=== PATIENT | male | born 1970 ===

== ENCOUNTER 2024-12-02 16:19 | Inpatient (IN) | payer MEDICAID ==
[2024-12-02] VITALS (8 sets, daily range): BP systolic 84–107; BP diastolic 50–70; PULSE 75–84; RESP 14–22; TEMP 98.5; O2SAT 93–100
[~2024-12-02] VITALS: Ht 167.6 cm; Wt 88.6 kg
[2024-12-02 16:52] LABS: BASOPHILS % (AUTO) 0.4 % (0-1); EOSINOPHILS % (AUTO) 0.3 % (0-6); HEMATOCRIT 44.4 % (42.0-52.0); HEMOGLOBIN 14.8 g/dl (14.0-17.9); LYMPHOCYTES # (AUTO) 1.1 X10'3 (1.1-4.8); LYMPHOCYTES % (AUTO) 10.1 % (21-51); MEAN CORPUSCULAR HEMOGLOBIN 33.1 PG (27.0-31.0); MEAN CORPUSCULAR HGB CONC 33.3 g/dL (33.0-36.5); MEAN CORPUSCULAR VOLUME 99.4 FL (78-98); MEAN PLATELET VOLUME 8.7 FL (7.4-10.4); MONOCYTES # (AUTO) 0.5 X10'3 (0-0.9); MONOCYTES % (AUTO) 4.2 % (2-12); NEUTROPHILS # (AUTO) 9.3 X10'3 (1.8-7.7); PLATELET COUNT 342 X10'3 (140-440); RED BLOOD COUNT 4.46 X10'6 (4.70-6.10); RED CELL DISTRIBUTION WIDTH 13.9 % (11.5-14.5)
[2024-12-02 17:06] LABS: ALANINE AMINOTRANSFERASE 34 U/L (12-78); ALBUMIN 3.6 G/DL (3.4-5.0); ALBUMIN/GLOBULIN RATIO 0.9 (1.1-1.5); ALKALINE PHOSPHATASE 92 IU/L (46-116); AMYLASE 38 U/L (25-115); ANION GAP 8 (8-16); BLOOD UREA NITROGEN 13 MG/DL (7-18); BUN/CREATININE RATIO 13.1 (10.0-20.0); CALCIUM 8.8 MG/DL (8.5-10.1); CHLORIDE 105 MMOL/L (99-107); CREATININE 0.99 MG/DL (0.60-1.10); GLUCOSE 136 MG/DL (70-104); LIPASE 24 U/L (16-77); SODIUM 139 MMOL/L (135-145); TOTAL CARBON DIOXIDE 26.1 MMOL/L (24-32); TOTAL PROTEIN 7.6 G/DL (6.4-8.2); eCRCL 77 ML/MIN; eGFR 79 ML/MIN
[2024-12-02 17:08] LABS: ASPARTATE AMINO TRANSFERASE 29 U/L (10-37); BILIRUBIN,TOTAL 1.2 MG/DL (0.1-1.0); POTASSIUM 4.2 MMOL/L (3.5-5.1)
[2024-12-02 18:14] LABS: BILIRUBIN,URINE NEGATIVE (Neg); CLARITY,URINE CLEAR (Clear); COLOR,URINE YELLOW (Yellow); GLUCOSE, URINE NEGATIVE (Neg); KETONES,URINE 40 mg/dl (Neg); LEUKOCYTE ESTERASE ,URINE NEGATIVE (Neg); NITRITES, URINE NEGATIVE (Neg); OCCULT BLOOD,URINE NEGATIVE (Neg); PROTEIN,URINE 30 mg/dl (Neg)
[2024-12-02 18:18] LABS: UA COLLECTION TYPE VOIDED
[2024-12-02 18:20] LABS: BACTERIA,URINE FEW /HPF (Neg); MUCUS STRANDS NONE SEEN /LPF (Neg); RBC,URINE 0-2 /HPF (0-2); SPERM MODERATE /HPF (NEGATIVE); WBC,URINE 0-4 /HPF (0-4)
[2024-12-02 18:21] LABS: SQUAMOUS EPITHELIAL CELL,UR FEW /LPF (FEW)
[2024-12-02] MEDS: normal saline 1000ml 1,000 ML IV ONE (18:58)
[2024-12-02] MEDS: ondansetron/PF 4mg/2ml inj IV STA (20:13)
[2024-12-02] MEDS: morphine 4 MG/ML inj SYRINge IV STA (20:14)
[2024-12-02] MEDS: piperacillin/tazo 4.5gm/100ml 100 ML IV STA (20:33)
[2024-12-02] MEDS: normal saline 1000ml 1,000 ML IV STA (20:33)
[2024-12-02] MEDS ORDERED: BUPIVAcaine 2.5mg/ml inj 50ml vial (contains preservative) ONE (21:22)
[2024-12-02] MEDS ORDERED: sevoflurane 250ml liquid IH ONE (21:31)
[2024-12-02] MEDS ORDERED: normal saline 1000ml 1,000 ML IV SCH (21:35)
[2024-12-02] MEDS ORDERED: magnesium sulf-water 4G/100mL 100 ML IV PRN (21:35)
[2024-12-02] MEDS ORDERED: magnesium hydroxide 30ml (MOM) UD suspension PO PRN (21:35)
[2024-12-02] MEDS ORDERED: magnesium sulf-water 2g/50mL 50 ML IV PRN (21:35)
[2024-12-02] MEDS ORDERED: magnesium Cl slow-release 64mg tablet PO PRN (21:35)
[2024-12-02] MEDS ORDERED: potassium Cl 40MEQ/1/2NS 520ml 520 ML IV PRN (21:35)
[2024-12-02] MEDS ORDERED: ondansetron/PF 4mg/2ml inj IV PRN ×3 (21:35→23:05)
[2024-12-02] MEDS ORDERED: potassium Cl 20 mEq SR tablet PO PRN (21:35)
[2024-12-02] MEDS ORDERED: rocuronium 10mg/ml inj IV ONE (21:36)
[2024-12-02] MEDS ORDERED: fentaNYL/PF 50MCG/1 ML 2ML syringe ONE (21:36)
[2024-12-02] MEDS ORDERED: propofol inj 20 ML IV ONE (21:36)
[2024-12-02] MEDS ORDERED: dexamethasone sod phosphate 4mg/ml inj. ONE (21:55)
[2024-12-02] MEDS: BUPIVAcaine/PF 2.5 mg/ml (0.25%) 30ml vial IJ ONE (22:01)
[2024-12-02] MEDS ORDERED: naloxone 0.4 mg/ml inj IV PRN (22:50)
[2024-12-02] MEDS ORDERED: glycopyrrolate 0.2mg/ml inj ONE (22:53)
[2024-12-02] MEDS ORDERED: neostigmine methylsulfate 1 MG/ML 10ml vial ONE (22:53)
[2024-12-02] MEDS ORDERED: labetalol 20mg/4ml (5mg/ml) syringe IV PRN (23:05)
[2024-12-02] MEDS ORDERED: meperidine/PF 25mg/ml syringe IV PRN (23:05)
[2024-12-02] MEDS ORDERED: ringers solution, lacted 1,000 ML IV SCH (23:05)
[2024-12-02] MEDS ORDERED: morphine 2 MG/ML inj. syringe IV PRN (23:05)
[2024-12-02] MEDS ORDERED: acetaminophen 1,000mg/100ml IV 100 ML IV PRN (23:05)
[2024-12-02] MEDS ORDERED: HYDROmorphone/PF 0.2 MG/ML SYRINGE IV PRN ×2 (23:05)
[2024-12-02] MEDS ORDERED: morphine 4 MG/ML inj SYRINge IV PRN (23:05)
[2024-12-02] MEDS ORDERED: NO HOME MEDS (23:54)
[2024-12-03] VITALS (11 sets, daily range): BP systolic 94–108; BP diastolic 57–77; PULSE 60–89; RESP 16–19; TEMP 97.6–100; O2SAT 92–99
[2024-12-03] MEDS: potassium CL 20mEq in D5-1/2NS 1,000 ML IV SCH ×2 (02:49→17:48)
[2024-12-03 05:26] LABS: BASOPHILS % (AUTO) 0 % (0-1); EOSINOPHILS % (AUTO) 0 % (0-6); HEMATOCRIT 36.9 % (42.0-52.0); HEMOGLOBIN 12.4 g/dl (14.0-17.9); LYMPHOCYTES # (AUTO) 0.8 X10'3 (1.1-4.8); LYMPHOCYTES % (AUTO) 4.4 % (21-51); MEAN CORPUSCULAR HEMOGLOBIN 33.3 PG (27.0-31.0); MEAN CORPUSCULAR HGB CONC 33.5 g/dL (33.0-36.5); MEAN CORPUSCULAR VOLUME 99.2 FL (78-98); MEAN PLATELET VOLUME 8.8 FL (7.4-10.4); MONOCYTES # (AUTO) 0.7 X10'3 (0-0.9); MONOCYTES % (AUTO) 3.8 % (2-12); NEUTROPHILS # (AUTO) 16.8 X10'3 (1.8-7.7); NEUTROPHILS % (AUTO) 91.8 % (42-75); PLATELET COUNT 266 X10'3 (140-440); RED BLOOD COUNT 3.72 X10'6 (4.70-6.10); RED CELL DISTRIBUTION WIDTH 13.9 % (11.5-14.5); WHITE BLOOD COUNT 18.4 X10'3 (4.5-11.0)
[2024-12-03] MEDS: piperacillin/tazo 3.375gm/50ml 50 ML IV SCH (05:28)
[2024-12-03 05:53] LABS: ALANINE AMINOTRANSFERASE 24 U/L (12-78); ALBUMIN 2.7 G/DL (3.4-5.0); ALBUMIN/GLOBULIN RATIO 0.8 (1.1-1.5); ALKALINE PHOSPHATASE 66 IU/L (46-116); ANION GAP 5 (8-16); ASPARTATE AMINO TRANSFERASE 14 U/L (10-37); BILIRUBIN,TOTAL 1.8 MG/DL (0.1-1.0); BLOOD UREA NITROGEN 12 MG/DL (7-18); BUN/CREATININE RATIO 12.5 (10.0-20.0); CALCIUM 7.9 MG/DL (8.5-10.1); CHLORIDE 107 MMOL/L (99-107); CREATININE 0.96 MG/DL (0.60-1.10); GLUCOSE 164 MG/DL (70-104); POTASSIUM 4.6 MMOL/L (3.5-5.1); SODIUM 138 MMOL/L (135-145); TOTAL CARBON DIOXIDE 25.6 MMOL/L (24-32); eCRCL 79 ML/MIN; eGFR 82 ML/MIN
[2024-12-03] MEDS ORDERED: Potassium Cl inj 20 MEQ in dextrose 5%-1/2 normal saline 990 ML IV SCH (06:14)
[2024-12-03] MEDS: K and/or MAG REPLACEMENT MC SCH (07:34)
[2024-12-03] MEDS: docusate sod 100mg capsule PO SCH (07:47)
[2024-12-03] MEDS ORDERED: potassium CL 20mEq in D5-1/2NS 1,000 ML IV SCH (09:45)
[2024-12-03] MEDS: Potassium Cl inj 20 MEQ in dextrose 5%-1/2 normal saline 1,000 ML IV SCH (10:04)
[2024-12-03] MEDS: HYDROmorphone inj. 0.5 MG/0.5 ML DISP.SYRIN IV PRN (14:22)
[2024-12-03] MEDS: pantoprazole 40 MG vial IV SCH (15:31)
[2024-12-03] MEDS: mag hydrox/Alum hydrox/simeth 30ml oral suspension PO PRN (17:31)
[2024-12-03] MEDS: HYDROcodone/acetaminophen 10/325mg tab PO PRN (20:38)
[2024-12-04] MEDS: acetaminophen 325mg tablet PO PRN (04:40)
[2024-12-04 04:58] LABS: BASOPHILS % (AUTO) 0.2 % (0-1); EOSINOPHILS # (AUTO) 0.1 X10'3 (0-0.9); EOSINOPHILS % (AUTO) 0.4 % (0-6); HEMOGLOBIN 11.6 g/dl (14.0-17.9); LYMPHOCYTES # (AUTO) 1.7 X10'3 (1.1-4.8); LYMPHOCYTES % (AUTO) 12.1 % (21-51); MEAN CORPUSCULAR HGB CONC 33.1 g/dL (33.0-36.5); MEAN CORPUSCULAR VOLUME 99.6 FL (78-98); MEAN PLATELET VOLUME 8.2 FL (7.4-10.4); MONOCYTES # (AUTO) 0.7 X10'3 (0-0.9); MONOCYTES % (AUTO) 5.1 % (2-12); NEUTROPHILS # (AUTO) 11.8 X10'3 (1.8-7.7); NEUTROPHILS % (AUTO) 82.2 % (42-75); PLATELET COUNT 235 X10'3 (140-440); RED BLOOD COUNT 3.51 X10'6 (4.70-6.10); RED CELL DISTRIBUTION WIDTH 13.9 % (11.5-14.5); WHITE BLOOD COUNT 14.4 X10'3 (4.5-11.0)
[2024-12-04 05:24] LABS: ALANINE AMINOTRANSFERASE 21 U/L (12-78); ALBUMIN 2.4 G/DL (3.4-5.0); ALBUMIN/GLOBULIN RATIO 0.7 (1.1-1.5); ALKALINE PHOSPHATASE 62 IU/L (46-116); ANION GAP 6 (8-16); ASPARTATE AMINO TRANSFERASE 11 U/L (10-37); BILIRUBIN,TOTAL 1.1 MG/DL (0.1-1.0); BLOOD UREA NITROGEN 10 MG/DL (7-18); BUN/CREATININE RATIO 9.4 (10.0-20.0); CALCIUM 7.8 MG/DL (8.5-10.1); CHLORIDE 106 MMOL/L (99-107); CREATININE 1.06 MG/DL (0.60-1.10); GLUCOSE 110 MG/DL (70-104); MAGNESIUM 1.8 MG/DL (1.5-2.4); POTASSIUM 3.5 MMOL/L (3.5-5.1); SODIUM 138 MMOL/L (135-145); TOTAL CARBON DIOXIDE 25.7 MMOL/L (24-32); TOTAL PROTEIN 5.8 G/DL (6.4-8.2); eCRCL 72 ML/MIN; eGFR 73 ML/MIN
[2024-12-04 06:00] VITALS: BP 117/56; PULSE 78; RESP 14; TEMP 98.8; O2SAT 96
[2024-12-04 08:00] VITALS: RESP 16; O2SAT 95
[2024-12-04 10:00] VITALS: BP 105/76; PULSE 73; RESP 17; TEMP 98.8; O2SAT 97
[2024-12-04] MEDS ORDERED: morphine 2 MG/ML inj. syringe IV PRN (12:25)
[2024-12-04 18:00] VITALS: BP 94/64; PULSE 81; RESP 18; TEMP 99.3; O2SAT 97
[2024-12-04 20:00] VITALS: RESP 16; O2SAT 97
[2024-12-04] MEDS: magnesium hydroxide 30ml (MOM) UD suspension PO SCH (21:31)
[2024-12-04 22:00] VITALS: BP 103/70; PULSE 73; RESP 16; TEMP 99.4; O2SAT 95
[2024-12-05 05:08] LABS: BASOPHILS # (AUTO) 0.1 X10'3 (0-0.2); BASOPHILS % (AUTO) 0.3 % (0-1); EOSINOPHILS # (AUTO) 0.3 X10'3 (0-0.9); EOSINOPHILS % (AUTO) 1.7 % (0-6); HEMATOCRIT 35.7 % (42.0-52.0); HEMOGLOBIN 12.1 g/dl (14.0-17.9); LYMPHOCYTES # (AUTO) 1.5 X10'3 (1.1-4.8); LYMPHOCYTES % (AUTO) 10.1 % (21-51); MEAN CORPUSCULAR HEMOGLOBIN 33.2 PG (27.0-31.0); MEAN CORPUSCULAR HGB CONC 33.8 g/dL (33.0-36.5); MEAN CORPUSCULAR VOLUME 98.4 FL (78-98); MEAN PLATELET VOLUME 8.5 FL (7.4-10.4); MONOCYTES # (AUTO) 0.9 X10'3 (0-0.9); MONOCYTES % (AUTO) 5.9 % (2-12); NEUTROPHILS # (AUTO) 12.2 X10'3 (1.8-7.7); PLATELET COUNT 259 X10'3 (140-440); RED BLOOD COUNT 3.63 X10'6 (4.70-6.10); RED CELL DISTRIBUTION WIDTH 13.7 % (11.5-14.5); WHITE BLOOD COUNT 14.8 X10'3 (4.5-11.0)
[2024-12-05 05:25] LABS: ALANINE AMINOTRANSFERASE 27 U/L (12-78); ALBUMIN 2.4 G/DL (3.4-5.0); ALBUMIN/GLOBULIN RATIO 0.6 (1.1-1.5); ALKALINE PHOSPHATASE 87 IU/L (46-116); ANION GAP 6 (8-16); ASPARTATE AMINO TRANSFERASE 20 U/L (10-37); BILIRUBIN,TOTAL 1.5 MG/DL (0.1-1.0); BLOOD UREA NITROGEN 8 MG/DL (7-18); BUN/CREATININE RATIO 9.5 (10.0-20.0); CALCIUM 8.2 MG/DL (8.5-10.1); CHLORIDE 103 MMOL/L (99-107); CREATININE 0.84 MG/DL (0.60-1.10); GLUCOSE 119 MG/DL (70-104); MAGNESIUM 1.9 MG/DL (1.5-2.4); POTASSIUM 3.8 MMOL/L (3.5-5.1); SODIUM 135 MMOL/L (135-145); TOTAL CARBON DIOXIDE 25.9 MMOL/L (24-32); TOTAL PROTEIN 6.6 G/DL (6.4-8.2); eCRCL 91 ML/MIN; eGFR > 90 ML/MIN
[2024-12-05 06:00] VITALS: BP 94/65; PULSE 78; RESP 16; TEMP 99.6; O2SAT 99
[2024-12-05] MEDS: potassium Cl 20 mEq SR tablet PO PRN (09:26)
[2024-12-05 10:00] VITALS: BP 97/58; PULSE 88; RESP 18; TEMP 99.6; O2SAT 100
[2024-12-05 11:21] VITALS: RESP 16; O2SAT 97
[2024-12-05] MEDS: nicotine 21mg patch - 24 hr TD SCH (13:12)
[2024-12-05] MEDS: HYDROcodone/acetaminophen 10/325mg tab PO PRN (17:52)
[2024-12-05 18:00] VITALS: BP 98/67; PULSE 86; RESP 18; TEMP 99.7; O2SAT 97
[2024-12-05 20:00] VITALS: RESP 17; O2SAT 97
[2024-12-05 22:00] VITALS: BP 97/63; PULSE 78; RESP 16; TEMP 98.7; O2SAT 98
[2024-12-06 04:41] LABS: BASOPHILS # (AUTO) 0.1 X10'3 (0-0.2); BASOPHILS % (AUTO) 0.6 % (0-1); EOSINOPHILS # (AUTO) 0.3 X10'3 (0-0.9); EOSINOPHILS % (AUTO) 2.4 % (0-6); HEMATOCRIT 35.4 % (42.0-52.0); HEMOGLOBIN 11.9 g/dl (14.0-17.9); LYMPHOCYTES # (AUTO) 1.3 X10'3 (1.1-4.8); MEAN CORPUSCULAR HEMOGLOBIN 33.3 PG (27.0-31.0); MEAN CORPUSCULAR HGB CONC 33.7 g/dL (33.0-36.5); MEAN CORPUSCULAR VOLUME 98.7 FL (78-98); MEAN PLATELET VOLUME 8.5 FL (7.4-10.4); MONOCYTES # (AUTO) 1.3 X10'3 (0-0.9); MONOCYTES % (AUTO) 10.2 % (2-12); NEUTROPHILS % (AUTO) 76.8 % (42-75); PLATELET COUNT 285 X10'3 (140-440); RED BLOOD COUNT 3.58 X10'6 (4.70-6.10); RED CELL DISTRIBUTION WIDTH 13.4 % (11.5-14.5)
[2024-12-06 04:58] LABS: ALANINE AMINOTRANSFERASE 33 U/L (12-78); ALBUMIN 2.3 G/DL (3.4-5.0); ALBUMIN/GLOBULIN RATIO 0.6 (1.1-1.5); ALKALINE PHOSPHATASE 106 IU/L (46-116); ANION GAP 6 (8-16); ASPARTATE AMINO TRANSFERASE 23 U/L (10-37); BILIRUBIN,TOTAL 1.1 MG/DL (0.1-1.0); BLOOD UREA NITROGEN 7 MG/DL (7-18); BUN/CREATININE RATIO 7.3 (10.0-20.0); CALCIUM 8.2 MG/DL (8.5-10.1); CHLORIDE 104 MMOL/L (99-107); CREATININE 0.96 MG/DL (0.60-1.10); GLUCOSE 110 MG/DL (70-104); MAGNESIUM 2.2 MG/DL (1.5-2.4); SODIUM 136 MMOL/L (135-145); TOTAL CARBON DIOXIDE 26.3 MMOL/L (24-32); TOTAL PROTEIN 6.3 G/DL (6.4-8.2); eCRCL 79 ML/MIN; eGFR 82 ML/MIN
[2024-12-06 06:00] VITALS: BP 96/57; PULSE 75; RESP 18; TEMP 98.6; O2SAT 98
[2024-12-06 08:15] VITALS: RESP 18; O2SAT 98
[2024-12-06 10:00] VITALS: BP 107/66; PULSE 77; RESP 18; TEMP 98.8; O2SAT 95
[2024-12-06 18:00] VITALS: BP 90/56; PULSE 85; RESP 20; TEMP 100.3; O2SAT 99
[2024-12-06 20:00] VITALS: RESP 20; O2SAT 99
[2024-12-06 22:00] VITALS: BP 107/68; PULSE 81; RESP 20; TEMP 99.3; O2SAT 91
[2024-12-07 05:53] LABS: BASOPHILS % (AUTO) 0.3 % (0-1); EOSINOPHILS # (AUTO) 0.3 X10'3 (0-0.9); EOSINOPHILS % (AUTO) 2.6 % (0-6); HEMATOCRIT 36.5 % (42.0-52.0); HEMOGLOBIN 12.4 g/dl (14.0-17.9); LYMPHOCYTES # (AUTO) 1.7 X10'3 (1.1-4.8); LYMPHOCYTES % (AUTO) 14.7 % (21-51); MEAN CORPUSCULAR HEMOGLOBIN 33.2 PG (27.0-31.0); MEAN CORPUSCULAR HGB CONC 33.9 g/dL (33.0-36.5); MEAN CORPUSCULAR VOLUME 97.9 FL (78-98); MEAN PLATELET VOLUME 8.4 FL (7.4-10.4); MONOCYTES # (AUTO) 1.2 X10'3 (0-0.9); MONOCYTES % (AUTO) 10.1 % (2-12); NEUTROPHILS # (AUTO) 8.3 X10'3 (1.8-7.7); NEUTROPHILS % (AUTO) 72.3 % (42-75); PLATELET COUNT 324 X10'3 (140-440); RED BLOOD COUNT 3.73 X10'6 (4.70-6.10); RED CELL DISTRIBUTION WIDTH 13.7 % (11.5-14.5); WHITE BLOOD COUNT 11.4 X10'3 (4.5-11.0)
[2024-12-07 06:00] VITALS: BP 101/63; PULSE 61; RESP 18; TEMP 98.4; O2SAT 97
[2024-12-07 06:30] LABS: ALANINE AMINOTRANSFERASE 50 U/L (12-78); ALBUMIN 2.4 G/DL (3.4-5.0); ALBUMIN/GLOBULIN RATIO 0.6 (1.1-1.5); ALKALINE PHOSPHATASE 116 IU/L (46-116); ANION GAP 9 (8-16); ASPARTATE AMINO TRANSFERASE 34 U/L (10-37); BILIRUBIN,TOTAL 0.4 MG/DL (0.1-1.0); BLOOD UREA NITROGEN 11 MG/DL (7-18); BUN/CREATININE RATIO 10.2 (10.0-20.0); CALCIUM 8.5 MG/DL (8.5-10.1); CHLORIDE 102 MMOL/L (99-107); CREATININE 1.08 MG/DL (0.60-1.10); GLUCOSE 119 MG/DL (70-104); POTASSIUM 4.2 MMOL/L (3.5-5.1); SODIUM 135 MMOL/L (135-145); TOTAL CARBON DIOXIDE 24.2 MMOL/L (24-32); TOTAL PROTEIN 6.5 G/DL (6.4-8.2); eCRCL 71 ML/MIN; eGFR 71 ML/MIN
[2024-12-07 08:00] VITALS: RESP 18; O2SAT 96
[2024-12-07 10:00] VITALS: BP 105/67; PULSE 76; RESP 14; TEMP 99.6; O2SAT 96
[2024-12-07] MEDS ORDERED: AMOX-117 PO (16:00)
== END 2024-12-07 16:42 | disposition left against medical advice (07) | DRG 233 ==
LOC: ER 16:20 → SUR 3N 21:40 → UNDOADMIN 21:40 → SUR 3N 23:38
PROVIDERS: ADMIT Internal Medicine Critical Care Medicine; ATTEND Internal Medicine
PROC: 8E0W4CZ Robotic Assisted Procedure of Trunk Region, Percutaneous Endoscopic Approach (ICD-10-PCS; 2024-12-02)
PROC: BW211ZZ Computerized Tomography (CT Scan) of Abdomen and Pelvis using Low Osmolar Contrast (ICD-10-PCS; 2024-12-02)
PROC: 0DTJ4ZZ Resection of Appendix, Percutaneous Endoscopic Approach (ICD-10-PCS; principal; 2024-12-02 21:31)
DX: K35.32 Acute appendicitis with perforation, localized peritonitis, and gangrene, without abscess (principal); Z53.29 Procedure and treatment not carried out because of patient's decision for other reasons; F17.210 Nicotine dependence, cigarettes, uncomplicated; Z79.899 Other long term (current) drug therapy
CPT/HCPCS: 36415; 74177; 80053; 81001; 82150; 83605; 83690; 83735; 85025; 87081; 93005; 96365; 96375; 99285; A4215; A4314; A4615; A4618; A6258; A6402; A6407; G0378; J1100; J1171; J2270; J2405; J2470; J2543; J2704; J2710; J3010; J3480; J3490; J7030; J7120